=== PATIENT | male | born 1965 | race Caucasian/White ===

== ENCOUNTER 2018-03-29 13:17 | Observation (INO) | payer MEDICAID, SELFPAY ==
[2018-03-29] VITALS (11 sets, daily range): BP systolic 141–164; BP diastolic 88–119; PULSE 70–92; RESP 16–19; TEMP 36.7–37.3; O2SAT 94–97; BMI 35.1; BMI 34.2
--- NOTE | 2018-03-29 13:26 | NURSING ---
NO OLD EKGS
--- NOTE | 2018-03-29 13:39 | CT_ITS ---
STUDY: CTA NECK WITH CONTRAST REASON FOR EXAM: Male, 52 years old. Right arm weakness. RADIATION DOSAGE (If Supplied By Facility): CTDIvol = ( 28.73 ) mGy, DLP = ( 1536.42 ) mGycm TECHNIQUE: CT angiography with multi-detector data acquisition was performed from the aortic arch to the skull base following intravenous administration of 100 ml of Isovue 370 contrast. MIP images were reconstructed from the axial data set. Post-processing of the angiographic images was performed, with multiplanar reformation and 3D reconstruction. Individualized dose optimization techniques were used for this CT. COMPARISON: None. FINDINGS: AORTIC ARCH: There is a bovine origin of the great vessels arising from the aortic arch with a common origin of the brachiocephalic and left common carotid artery. Normal origin of the left subclavian artery. RIGHT CAROTID ARTERIES: Normal right common carotid artery (CCA). Normal right common carotid bulb. Normal origin of the right internal carotid (ICA) artery without a hemodynamically significant stenosis. Normal visualized cervical portion of the right internal carotid artery. Normal origin of the right external carotid artery (ECA). LEFT CAROTID ARTERIES: Normal left common carotid artery (CCA). Normal left common carotid bulb. There is moderate atherosclerotic plaque formation of the origin of the left internal carotid artery with an estimated stenosis of 50-69% stenosis. Normal visualized cervical portion of the left internal carotid artery. Normal origin of the left external carotid artery (ECA). VERTEBRAL ARTERIES: Normal bilateral vertebral arteries. IMPRESSION: 50-69% narrowing at the origin of the left internal carotid artery due to an atherosclerotic calcific plaque. Electronically Signed: Hernandez Small MD at 14:41 EDT Tel [phone], Service support , STUDY: CTA OF THE BRAIN REASON FOR EXAM: Male, 52 years old. Right arm weakness. RADIATION DOSAGE (If Supplied By Facility): CTDIvol = ( 28 ) mGy, DLP = ( 1536.42 ) mGycm TECHNIQUE: CT angiography was performed with a multi-detector CT scanner. Data acquisition was obtained from the skull base through the vertex following intravenous administration of 100 ml of Isovue-370. MIP images were reconstructed from the axial data set. Post-processing of the angiographic images was performed, with multiplanar reformation and 3D reconstruction. Individualized dose optimization techniques were used for this CT. COMPARISON: None. FINDINGS: Normal bilateral petrous carotid arteries. Normal right cavernous carotid artery with a normal supraclinoid bifurcation. Normal left cavernous carotid artery with a normal supraclinoid bifurcation. Normal right A1 segments of the anterior cerebral artery. Normal left A1 segments of the anterior cerebral artery. Normal intact anterior communicating artery (ACOM). Normal bilateral A2 segments of the anterior cerebral arteries. Normal right M1 and M2 segments of the middle cerebral arteries, with a normal M1 bifurcation. Normal left M1 and M2 segments of the middle cerebral arteries, with a normal M1 bifurcation. Normal right posterior communicating artery (PCOM). Normal left posterior communicating artery (PCOM). Normal bilateral vertebral arteries. Normal basilar artery with a normal basilar bifurcation. The visualized bilateral superior cerebellar (SCA) arteries are normal. Normal bilateral P1, P2 and visualized P3 segments of the posterior cerebral arteries. There is no demonstrated aneurysm of the [place] of [place]. There is no demonstrated abnormality of the visualized brain. CT/CTA Head W/WO Contrast IMPRESSION: Normal [place] of [place] without a demonstrated aneurysm or hemodynamically significant stenosis. Electronically Signed: Hernandez Small MD at 14:42 EDT Tel [phone], Service support ,
--- NOTE | 2018-03-29 13:39 | CT_ITS ---
STUDY: CTA NECK WITH CONTRAST REASON FOR EXAM: Male, 52 years old. Right arm weakness. RADIATION DOSAGE (If Supplied By Facility): CTDIvol = ( 28.73 ) mGy, DLP = ( 1536.42 ) mGycm TECHNIQUE: CT angiography with multi-detector data acquisition was performed from the aortic arch to the skull base following intravenous administration of 100 ml of Isovue 370 contrast. MIP images were reconstructed from the axial data set. Post-processing of the angiographic images was performed, with multiplanar reformation and 3D reconstruction. Individualized dose optimization techniques were used for this CT. COMPARISON: None. FINDINGS: AORTIC ARCH: There is a bovine origin of the great vessels arising from the aortic arch with a common origin of the brachiocephalic and left common carotid artery. Normal origin of the left subclavian artery. RIGHT CAROTID ARTERIES: Normal right common carotid artery (CCA). Normal right common carotid bulb. Normal origin of the right internal carotid (ICA) artery without a hemodynamically significant stenosis. Normal visualized cervical portion of the right internal carotid artery. Normal origin of the right external carotid artery (ECA). LEFT CAROTID ARTERIES: Normal left common carotid artery (CCA). Normal left common carotid bulb. There is moderate atherosclerotic plaque formation of the origin of the left internal carotid artery with an estimated stenosis of 50-69% stenosis. Normal visualized cervical portion of the left internal carotid artery. Normal origin of the left external carotid artery (ECA). VERTEBRAL ARTERIES: Normal bilateral vertebral arteries. IMPRESSION: 50-69% narrowing at the origin of the left internal carotid artery due to an atherosclerotic calcific plaque. Electronically Signed: Hernandez Small MD at 14:41 EDT Tel [phone], Service support , STUDY: CTA OF THE BRAIN REASON FOR EXAM: Male, 52 years old. Right arm weakness. RADIATION DOSAGE (If Supplied By Facility): CTDIvol = ( 28 ) mGy, DLP = ( 1536.42 ) mGycm TECHNIQUE: CT angiography was performed with a multi-detector CT scanner. Data acquisition was obtained from the skull base through the vertex following intravenous administration of 100 ml of Isovue-370. MIP images were reconstructed from the axial data set. Post-processing of the angiographic images was performed, with multiplanar reformation and 3D reconstruction. Individualized dose optimization techniques were used for this CT. COMPARISON: None. FINDINGS: Normal bilateral petrous carotid arteries. Normal right cavernous carotid artery with a normal supraclinoid bifurcation. Normal left cavernous carotid artery with a normal supraclinoid bifurcation. Normal right A1 segments of the anterior cerebral artery. Normal left A1 segments of the anterior cerebral artery. Normal intact anterior communicating artery (ACOM). Normal bilateral A2 segments of the anterior cerebral arteries. Normal right M1 and M2 segments of the middle cerebral arteries, with a normal M1 bifurcation. Normal left M1 and M2 segments of the middle cerebral arteries, with a normal M1 bifurcation. Normal right posterior communicating artery (PCOM). Normal left posterior communicating artery (PCOM). Normal bilateral vertebral arteries. Normal basilar artery with a normal basilar bifurcation. The visualized bilateral superior cerebellar (SCA) arteries are normal. Normal bilateral P1, P2 and visualized P3 segments of the posterior cerebral arteries. There is no demonstrated aneurysm of the [place] of [place]. There is no demonstrated abnormality of the visualized brain. CT/CTA Neck W/WO Contrast IMPRESSION: Normal [place] of [place] without a demonstrated aneurysm or hemodynamically significant stenosis. Electronically Signed: Hernandez Small MD at 14:42 EDT Tel [phone], Service support ,
--- NOTE | 2018-03-29 13:40 | EKG12_ITS ---
Test Reason : NUMBNESS Blood Pressure : / mmHG Vent. Rate : 091 BPM Atrial Rate : 091 BPM P-R Int : 148 ms QRS Dur : 088 ms QT Int : 364 ms P-R-T Axes : 061 059 046 degrees QTc Int : 447 ms Normal sinus rhythm Nonspecific ST and T wave abnormality Abnormal ECG Confirmed by CHELLE MENA, LETICIA ([id number]), brands editor AGUSTÍN MANCIA ([id number]) on 03/31/2018 1:40:22 PM Referred By: GUILLERMO/JAX Confirmed By:LETICIA CORBETT MD
--- NOTE | 2018-03-29 13:42 | ED.VISSUMM ---
- ER Visit Summary Date of Service: 03/29/18 Chief Complaint: Right arm numbness and weakness History of Present Illness: The patient is a [address] Brian. Reports that approximately 1 hour ago he had the onset of right arm numbness and weakness. This was most pronounced in his hand. It lasted approximately 10 minutes. He reports the weakness is resolved. However, he still is experiencing numbness. He denies any facial droop. No slurred speech or aphasia. No vertigo. No symptoms on the left. He has never had anything like this before. He is right-hand dominant. He denies any change in activity or recent trauma. Physical Examination: Vitals: Stable. Afebrile. General: Well-nourished and well-developed. Head: Normocephalic atraumatic. Neck: Supple, no lymphadenopathy. No JVD. Nontender. Cardiovascular: Regular rate and rhythm. No murmurs. Respiratory: No respiratory distress. Clear to auscultation bilaterally. Abdominal: Soft, nontender, nondistended, normal bowel sounds. No guarding, rebound, or peritoneal signs. Back: Nontender. Extremities: Nontender, no edema. Skin: Normal color, no rash. Neurologic: Alert and oriented ?3. Cranial nerves II through XII are intact. Normal strength. Decreased sensation to light touch in the right arm. NIH scale is 1. Psych: Normal affect. Test Results: CBC is marked for a hemoglobin of 16.7, segmented neutrophils of 46, monocytes of 11. Coags are normal. EKG is sinus at [address] head is normal. CTA head is normal. CTA of the neck shows 50-69% narrowing at the origin of the left internal carotid artery secondary to atherosclerotic plaque. Emergency Department Course and Treatment: Patient's NIH scale is 1. He is not a TPA candidate. He is resting comfortably. Treatment Plan: Patient was discussed with Dr. Fernandez. He will be discussed with the hospitalist and admitted for further evaluation and treatment. Disposition: Admitted in improved condition. Impression: 1. Right-sided upper extremity weakness/numbness. This note was generated with [employer] software. It may contain incorrect words, spelling, and punctuation that were not noted in review of the chart prior to signing ED Disposition - Plan for ED Patient: Chief Complaint: Numb/Ting Referrals: Blu Gill MD [Primary Care Provider] -
[2018-03-29] MEDS: 0.9% Normal Saline 1,000 ML 100 ML IV (14:00)
--- NOTE | 2018-03-29 14:03 | NURSING ---
GENET HILARIO, CALLED. GREEN TOP HEMOLIZED
[2018-03-29 14:04] LABS: Hematocrit 46.3 % (40-54); Hemoglobin 16.7 g/dl (13.0-16.5); Mean Corp Hgb Conc 36.1 g/gl (32-36); Mean Corpuscular Hgb 30.9 pg (27.0-32.0); Mean Corpuscular Volume 85.6 fL (80-94); Platelet Count 287 K/mm3 (150-450); RBC Distribution Width CV 12.7 % (11.6-14.6); RBC Distribution Width SD 39.4 fl (35.1-43.9); Red Blood Count 5.41 M/mm3 (4.6-6.2); White Blood Count 6.3 K/mm3 (4.4-11.0)
[2018-03-29 14:05] LABS: Bedside Glucose 163 mg/dL (70-110)
[2018-03-29 14:05] LABS: Absolute Lymphocyte Count 2.52 X10^3/ul (0.83-4.51); Absolute Neutrophil Count 2.9 X10^3/uL (2.0-7.7); Basophil# 0.03 X10^3/uL; Basophil% 0.5 % (0-1); Eosinophil# 0.17 X10^3/uL; Eosinophils% 2.7 % (0-5); Lymphocyte # 2.52 X10^3/ul (4.0); Lymphocyte % 39.7 % (19-41); Monocyte# 0.67 X10^3/uL; Monocyte% 10.6 % (0-10); Neutrophil # 2.92 X10^3/uL (2.7-7.7); POSITIVE COUNT NO; POSITIVE DIFFERENTIAL NO; POSITIVE MORPHOLOGY NO
[2018-03-29 14:19] LABS: International Normalized Ratio 0.9
[2018-03-29 14:20] LABS: Partial Thromboplast Time 26.4 Seconds (24.1-36.2)
--- NOTE | 2018-03-29 15:43 | CON.PCM_ITS ---
Problem List (1) TIA (transient ischemic attack) Status: Acute Reason for Consult Date of Consultation: 03/29/18 Reason for Consultation: TIA History of Present Illness: The patient is a 52 year old CM with no significant PMH admitted with acute onset right arm weakness and numbness. 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 CT head reported nothing acute, CTA head/neck reported to show Left ICA 50-69% stenosis. [] Past Medical History Allergies No Known Allergies Allergy (Verified 03/29/18 13:21) Home Medications: Ambulatory Orders Medication Instructions Recorded NK [NK] 03/29/18 Lives: Spouse/ Significant Other Smoking Status: Never smoker Alcohol: None Drugs: None Review of Systems Constitutional: Reports: - - complete ROS negative except as documented in HPI Patient Problems: Active and Suspected Problems TIA (transient ischemic attack) (Acute) - Physical Exam General: Alert HEENT: Atraumatic Neck: Supple Lungs: Clear to auscultation Cardiovascular: Normal S1, Normal S2 Abdomen: Bowel Sounds Present Extremities: No cyanosis Skin: No rashes Musculoskeletal: No Tenderness to Palpation of Joints or Extremities Neurological: - - consious, alert, AoA x3, CN 2-12 grossly intact, power 5/5 all 4 extremities, no sensory loss, no cerebellar signs, Reflexes + B/L B/S/T/K/ A, gait deferred, NIHSS 0 at present. Psych/Mental Status: Normal Affect Vital Signs Temp Pulse Resp BP Pulse Ox 99.1 F 89 16 143/88 H 96 03/29/18 13:21 03/29/18 14:34 03/29/18 14:34 03/29/18 14:34 03/29/18 14:34 Oxygen Delivery Method Room Air Weight: 95.7 kg Body Mass Index (BMI) 35.1 Finger Stick Blood Glucose 163 Laboratory Tests Past 24 Hrs 03/29/18 03/29/18 03/29/18 13:30 13:30 13:30 WBC 6.3 RBC 5.41 Hgb 16.7 H Hct 46.3 MCV 85.6 MCH 30.9 MCHC 36.1 H RDW 12.7 RDW Differential 39.4 Plt Count 287 MPV 9.0 Immature Gran % (Auto) 0.500 Neut % (Auto) 46.0 L Lymph % (Auto) 39.7 [place] % (Auto) 10.6 H Eos % (Auto) 2.7 Baso % (Auto) 0.5 Absolute Neuts (auto) 2.9 Absolute Lymphs (auto) 2.52 Total Counted Not Reportable PT 12.0 INR 0.9 APTT 26.4 Sodium Cancelled Potassium Cancelled Chloride Cancelled Carbon Dioxide Cancelled Anion Gap Cancelled BUN Cancelled Creatinine Cancelled Estim Creat Clear Calc Cancelled Est GFR (MDRD) Af Amer Cancelled Est GFR (MDRD) Non-Af Cancelled BUN/Creatinine Ratio Cancelled Glucose Cancelled Calcium Cancelled 03/29/18 14:30 WBC RBC Hgb Hct MCV MCH MCHC RDW RDW Differential Plt Count MPV Immature Gran % (Auto) Neut % (Auto) Lymph % (Auto) [place] % (Auto) Eos % (Auto) Baso % (Auto) Absolute Neuts (auto) Absolute Lymphs (auto) Total Counted PT INR APTT Sodium Pending Potassium Pending Chloride Pending Carbon Dioxide Pending Anion Gap Pending BUN Pending Creatinine Pending Estim Creat Clear Calc Est GFR (MDRD) Af Amer Pending Est GFR (MDRD) Non-Af Pending BUN/Creatinine Ratio Pending Glucose Pending Calcium Pending POC Glucose 03/29/18 13:59 POC Glucose 163 H Assessment/Plan All Active Problems TIA (transient ischemic attack) (Acute) The patient is a 52 year old CM with no significant PMH admitted with acute onset right arm weakness and numbness. 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 CT head reported nothing acute, CTA head/neck reported to show Left ICA 50-69% stenosis. Impression Probable TIA Plan -ASA 81 mg PO once daily, Plavix 75 mg PO once daily. Dual AP for 3 weeks, then switch to single AP -Lipitor 80 mg PO q hs -MRI brain w/o contrast and MRI C spine w/o contrast -CTA head/neck reviewed -Recommend TTE, LDL and Hba1c -Stroke risk factors discussed in detail and stroke education provided -PT/OT -GI/DVT prophylaxis -Follow up with Neurology as outpatient in 2-3 weeks -Please call with questions if any -Thank you for allowing us to participate in patient's care and management I spent 60 minutest taking history, doing physical examination, reviewing medical records, coordinating care and counseling patient and his family
--- NOTE | 2018-03-29 15:43 | MRI_ITS ---
STUDY: MRI BRAIN WITHOUT CONTRAST REASON FOR EXAM: Male, 52 years old. Right arm weakness and numbness. TECHNIQUE: Standardized multiplanar fat and water weighted pulse sequences were obtained. COMPARISON: None. FINDINGS: Normal size of the ventricles and extra-axial spaces for the patient's age. Normal white matter tracts of the supratentorial brain. There is no evidence for recent intracranial ischemia or other cause of cytotoxic edema on diffusion weighted imaging (DWI). Normal T2* images of the brain without demonstrated susceptibility artifact. There is no demonstrated hemosiderin stain. Normal bilateral basal ganglia. Normal thalami. There is no extra-axial fluid accumulation. Normal flow voids within the major intracranial circulation suggesting patency by spin echo criteria. Normal sella turcica, pituitary gland, infundibular stalk, optic chiasm and hypothalamus. Normal tectal plate and pineal gland. Normal midbrain, natty and medulla. Normal cerebellum. Normal basal cisterns. Normal bilateral temporal bones. Normal bilateral internal auditory canals. No demonstrated orbital abnormality, within the constraints of a routine brain study. Normal visualized paranasal sinuses. Normal calvarium and skull base. Normal visualized soft tissue structures. Normal visualized upper cervical spine. MRI/Brain without Contrast IMPRESSION: No evidence of acute intracranial bleed, mass or ischemia. Electronically Signed: Chandan Qureshi DO at 20:51 EDT , Service support ,
--- NOTE | 2018-03-29 15:43 | MRI_ITS ---
STUDY: MRI CERVICAL SPINE WITHOUT CONTRAST REASON FOR EXAM: Male, 52 years old. Right arm weakness and numbness. TECHNIQUE: Standardized fat and water weighted pulse sequences were obtained in the sagittal and axial planes. COMPARISON: None FINDINGS: Normal foramen magnum and brainstem-cervical cord junction. Normal craniovertebral junction. Normal anterior atlantoaxial articulation. Normal odontoid process. Normal cervical lordosis. Normal vertebral bodies and posterior osseous elements. C2-3: Normal endplates. Normal disc height, signal and morphology. Normal central canal and intervertebral neural foramina. C3-4: Normal endplates. Normal disc height, signal and morphology. Normal central canal and intervertebral neural foramina. C4-5: Normal endplates. Normal disc height, signal and morphology. Normal central canal and intervertebral neural foramina. C5-6: Normal endplates. Normal disc height, signal and morphology. Normal central canal and intervertebral neural foramina. C6-7: Normal endplates. Normal disc height, signal and morphology. Normal central canal and intervertebral neural foramina. C7-T1: Normal endplates. Normal disc height, signal and morphology. Normal central canal and intervertebral neural foramina. Normal cervical cord. Normal visualized soft tissue structures. MRI/Spine Cervical (Routine) IMPRESSION: No evidence of significant disc degenerative change, disc bulge or foraminal narrowing. Electronically Signed: Chandan Qureshi DO at 20:56 EDT , Service support ,
[2018-03-29 15:44] LABS: Anion Gap 9 (5-15); BUN 20 mg/dL (7-18); BUN/Creat Ratio 20.9 RATIO (10-20); Calcium,Total 7.9 mg/dL (8.5-10.1); Chloride 102 mmol/L (98-107); Creatinine, Serum 0.96 mg/dL (0.70-1.30); EST Glomerular Filtration Rate 88 mL/min (>60); Est Glom Filt Rate - Afr Amer 107 mL/min (>60); Estimated Creatinine Clearance 80.08 ml/min; Glucose 166 mg/dL (74-106); Potassium 3.7 mmol/L (3.5-5.1); Sodium Level 135 mmol/L (136-145)
--- NOTE | 2018-03-29 15:59 | NURSING ---
DR REILLY IN WITH PATIENT
--- NOTE | 2018-03-29 17:04 | NURSING ---
Eric notified patient may transfer to PCU.
--- NOTE | 2018-03-29 17:06 | NURSING ---
101 RT ARM WEAKNESS LYLY
--- NOTE | 2018-03-29 17:33 | ECHOCS_ITS ---
Reason For Study: TIA/CVA Procedure This was a 2D Doppler, Color Flow transthoracic echocardiogram. Exam performed portable in patient room. Left Ventricle Normal size and thickness. The estimated ejection fraction is 65 %. Normal diastology for age. No regional wall motion abnormalities noted. Right Ventricle Normal size and thickness. Normal systolic function. Atria Normal left atrium. Normal right atrium. Normal atrial septum. Bubble contrast study negative for right to left interatrial shunt. Mitral Valve The mitral valve is structurally normal. No prolapse or stenosis seen. Tricuspid Valve Normal tricuspid valve. Trivial tricuspid valve insufficiency. Aortic Valve Trisinus/trileaflet aortic valve. Normal aortic valve. Pulmonic Valve Normal pulmonic valve. Great Vessels Normal aortic root. Normal arch. Normal inferior vena cava. Inferior vena cava collapse with sniff. Pericardium/Pleural No pericardial effusion. Medication Diluted definity 4ml given slow IV push to enhance endocardial definition. Performed a rapid injection of agitated mix of 9 cc saline and 1cc air to assess for atrial septal defect. MMode/2D Measurements & Calculations LVIDd: 4.8 cm IVSd: 1.0 cm Ao root diam: 3.5 cm LVIDs: 2.8 cm LVPWd: 1.0 cm LA dimension: 3.5 cm RVDd: 3.0 cm FS: 40.7 % LAV(MOD-bp): 37.8 ml LA A4 area: 14.8 cm2 RA A4 area: 12.9 cm2 LAV(MOD-bp) Indexed: 19.1 ml/m2 LAV(MOD-sp2): 37.8 ml LAV(MOD-sp4): 34.1 ml Time Measurements MV dec time: 0.25 sec Doppler Measurements & Calculations MV E max nhan: 79.5 cm/sec Lat Peak E' Nhan: 11.2 cm/sec Med Peak E' Nhan: 9.1 cm/sec MV A max nhan: 71.8 cm/sec E/E' lat: 7.1 E/E' med: 8.8 MV E/A: 1.1 Ao V2 max: 139.8 cm/sec LV V1 max: 110.5 cm/sec PA V2 max: 114.6 cm/sec Ao max P.8 mmHg LV V1 max P.9 mmHg Interpretation Summary The estimated ejection fraction is 65 %. Trivial tricuspid valve insufficiency. Bubble contrast study negative for right to left interatrial shunt. Normal diastology for age. The study was technically difficult. Contrast injection was performed. Ordering Physician: Sourav Albright Referring Physician: KIMBERLY MIRANDA Performed By: Mary Rahman RDCS
--- NOTE | 2018-03-29 17:49 | HP.PCM_ITS ---
Problem List (1) Right arm and hand weakness Status: Acute History of Present Illness Date of Admission: 03/29/18 Chief Complaint: Right arm and hand weakness The patient is a 52 year old M at [facility] with chief complaint of right arm and hand weakness that lasted for about 10 minutes with an onset at about 12:30 PM today. Patient states that he was not able to pick objects up with his right hand. Patient denied any visual disturbances, speech disturbances, or any other focal motor weakness. Evaluation in the emergency room revealed the patient's NIH stroke score to be 1, CTA of the head and neck were performed and showed a 50-69% narrowing of the left internal carotid artery on the neck CTA, otherwise these tests were unremarkable. Patient's labs were remarkable for BUN of 20, glucose of 166, and hemoglobin of 16.7. Patient takes no medications at home. On my examination, patient's motor functioning was 5/5 bilaterally. He was seen in consultation by neurology in the emergency room, patient will be placed in observation status on PCU for right arm and hand weakness felt to possibly be secondary to a TIA or CVA. Past Medical History Allergies No Known Allergies Allergy (Verified 03/29/18 13:21) Home Medications: Ambulatory Orders Medication Instructions Recorded NK [NK] 03/29/18 Surgical History: no surgical history Psychiatric History: No pertinent psych hx Lives: Spouse/ Significant Other Smoking Status: Never smoker Tobacco Use: Non-smoker Alcohol: None Drugs: None - *Family History Maternal History Items: No pertinent history Paternal History Items: Heart Disease Review of Systems Constitutional: Reports: Weakness - Right arm and hand weakness as described in chief complaint. Denies: Anorexia, Chills, Fever, Night Sweats, Malaise, Weight Change, Fatigue Eyes: Denies: Blurred vision, Cataracts, Conjunctivae Inflammation, Double vision, Drainage, Pain, Redness HEENT: Denies: Difficulty Hearing, Difficulty Swallowing, Dysphasia, Ear Pain, Eye Pain, Hard of Hearing, Head Aches, Hearing Changes, Nasal bleeding, Nasal Congestion, Post Nasal Drip Cardiovascular: Denies: Chest Pain, Claudication, Chest Pressure, Chest Tightness, Edema, Heaviness, Orthopnea, Palpitations, Paroxysmal Noc. Dyspnea, Syncope Respiratory: Denies: Cough, Hemoptysis, Pleuritic Pain, Shortness of Breath, Shortness of breath at rest, Shortness of breath upon exertion, Sputum production, Wheezing Gastrointestinal: Denies: Abdominal Pain, Constipation, Diarrhea, Hematemesis, Hematochezia, Nausea, Melena, Vomiting Genitourinary: Denies: Dysuria, Frequency, Hematuria, Hesitancy, Urgency Musculoskeletal: Denies: Back Pain, Foot Pain, Hand Pain, Joint Pain, Joint stiffness, Joint swelling, Joint Tenderness, Leg Pain Skin: Denies: Dryness, Pruritis, Rash Neurological: Reports: Focal weakness - Right arm and hand weakness as described in chief complaint. Denies: Balance problems, Blurred vision, Double vision, Slurred speech, Difficulty swallowing, Headaches, Incoordination, Numbness, Tingling Psychiatric: Denies: Anxiety, Depression, Homicidal Ideations, Suicidal Ideations Endocrine: Denies: Change in Body Habitus, Heat/ Cold Intolerance, Polydipsia, Polyuria Hematologic/ Lymphatic: Denies: Adenopathy, Anemia, Easy Bruising, Easy Bleeding , Petechiae, Purpura VTE Information - Inpt Only VTE Present on Admission: No VTE Mechan Device Prophylaxis: None VTE Pharm Prophylaxis ordered?: Yes Patient Problems: Active and Suspected Problems TIA (transient ischemic attack) (Acute) Right arm and hand weakness (Acute) - Physical Exam General: Alert, Oriented x3, Cooperative, No apparent distress, Well developed, Well nourished HEENT: Atraumatic, PERRLA, EOMI, Normocephalic Oral: Moist Mucosa Neck: Supple, No JVD, Negative Carotid Bruits, No Nuchal Rigidity, Trachea Midline, Thyroid Normal Size and Texture Lungs: Clear to auscultation, Normal air movement, No rhonchi, No wheeze, No rales Cardiovascular: Regular rate, Regular Rhythm, Normal S1, Normal S2, No murmurs, No Ectopic Activity, PMI Normal, No rub noted, No Gallop Abdomen: Bowel Sounds Present, Soft, Non Tender, Non-Distended, No hernias noted Extremities: No clubbing, No cyanosis, No edema, Capillary Refill Less than 3 Seconds Skin: No rashes, No breakdown Musculoskeletal: No Tenderness to Palpation of Joints or Extremities Neurological: Cranial nerves II-XII grossly intact, Neuro grossly intact, Muscle tone normal, Sensory exam intact to light touch and pain, Coordination normal Psych/Mental Status: Normal Affect, Appropriate, Alert and oriented to time, place, person, mood and affect Vital Signs Temp Pulse Resp BP Pulse Ox 98.4 F 89 19 H 141/119 H 97 03/29/18 17:31 03/29/18 17:31 03/29/18 17:31 03/29/18 17:31 03/29/18 17:31 Oxygen Delivery Method Room Air Weight: 93.2 kg Body Mass Index (BMI) 34.2 Assessment/Plan All Active Problems TIA (transient ischemic attack) (Acute) Right arm and hand weakness (Acute) #1 right arm and hand weakness-transient in nature, etiology unclear at this point, patient will be placed in observation status on PCU, he will be monitored on telemetry, PT and OT will see the patient, patient will have an MRI of the brain tomorrow, patient will be seen again tomorrow by neurology, he will be placed on a statin and aspirin. #2 slight elevation of patient's blood sugar-patient will have a hemoglobin A1c performed Code Visit OBSV E&M: 12116 Initial observation care L3
[2018-03-29 19:56] LABS: Hemoglobin A1c 6.1 % (4.2-6.3)
[2018-03-29] MEDS: Atorvastatin Calcium 80 MG Tablet PO (21:44)
[2018-03-29] MEDS: Aspirin 81 MG TAB.CHEW PO (21:44)
[2018-03-30] VITALS (7 sets, daily range): BP systolic 118–140; BP diastolic 66–89; PULSE 67–85; RESP 16–18; TEMP 36.2–36.8; O2SAT 96–99; BMI 34.2
[2018-03-30 05:56] LABS: Cholesterol 229 mg/dL (200); High Density Lipoprotein 30 mg/dL; Triglycerides 497 mg/dL
[2018-03-30] MEDS: Aspirin 81 MG TAB.CHEW PO (09:55)
--- NOTE | 2018-03-30 10:15 | DCINST_ITS ---
- Discharge Diagnoses Current Active Problems: Current Active and Chronic Problems TIA (transient ischemic attack) (Acute) Right arm and hand weakness (Acute) You will use the following diet at home:: Cardiac - Low cholesterol Discharge Activity: Return to Normal Activity Call your doctor if you observe: Numbness or Tingling, Shortness of breath, Dizziness, Fainting spells, Chest pain Allergies/Adverse Reactions: Allergies No Known Allergies Allergy (Verified 03/29/18 13:21) Medications to take at Discharge Aspirin [Aspirin, Baby] 81 mg PO DAILY@0800 #30 tab.chew 03/30/18 Atorvastatin Calcium [Lipitor] 80 mg PO QHS #30 tab 03/30/18 Clopidogrel Bisulfate [Plavix] 75 mg PO DAILY #21 tab 03/30/18 The following prescriptions were given: Aspirin [Aspirin, Baby] 81 mg PO DAILY@0800 #30 tab.chew Atorvastatin Calcium [Lipitor] 80 mg PO QHS #30 tab Clopidogrel Bisulfate [Plavix] 75 mg PO DAILY #21 tab Primary Care Physician: Blu Gill MD [Primary Care Provider] - Please follow up with your Primary Care Physician in: 1 Week Test Results: Test results from this visit will be discussed in further detail at your follow- up appointment, if applicable. Please Follow Up With: Lazara Fernandez MD When: 2-3 Weeks Please Follow Up With: Curt Guillaume MD - Vascular Surgery When: 1-2 Weeks for follow regarding left carotid artery stenosis Proposed Discharge Date: 03/30/18
--- NOTE | 2018-03-30 10:16 | PCM.DC.SUM ---
Discharge Date and Diagnosis Date of Admission: 03/29/18 Date of Discharge: 03/30/18 - Primary Discharge Diagnosis Active and Suspected Problems 1. Probable TIA 2. Hyperlipidemia 3. Left ICA stenosis 50-69% Hospital Course and Treatment Imaging Results: Diagnostic Data Head CTA 03/29/18 13:39 IMPRESSION: Normal [place] without a demonstrated aneurysm or hemodynamically significant stenosis. Electronically Signed: Hernandez Small MD at 14:42 EDT Tel [phone], Service support , Neck CTA 03/29/18 13:39 IMPRESSION: Normal [place] without a demonstrated aneurysm or hemodynamically significant stenosis. Electronically Signed: Hernandez Small MD at 14:42 EDT Tel [phone], Service support , Brain MRI 03/29/18 15:43 IMPRESSION: No evidence of acute intracranial bleed, mass or ischemia. Electronically Signed: Chandan Qureshi DO at 20:51 EDT , Service support , Cervical Spine MRI 03/29/18 15:43 IMPRESSION: No evidence of significant disc degenerative change, disc bulge or foraminal narrowing. Electronically Signed: Chandan Qureshi DO at 20:56 EDT , Service support , Dr. Fernandez- Neurology Operations: None Procedures: 2-D Echocardiogram Summary of Care Provided: The patient is a 52 year old M admitted 03/29/18 due to right arm and hand weakness. Patient states this resolved after approximately 20 minutes. Neurology consulted. Probable TIA. He denies any focal deficits, visual or speech changes. NIH 0. Brain MRI negative for acute stroke. Cervical spine MRI showed no evidence of significant disc degenerative change, disc bulge or foraminal narrowing. CTA of neck demonstrated a left internal carotid artery with estimated 50-69% stenosis. Patient will be discharged on dual antiplatelet therapy for 3 weeks with aspirin and Plavix followed by a single antiplatelet therapy. Lipitor 80 mg p.o. nightly. Echocardiogram pending and will be reviewed prior to discharge. Follow-up with neurology as outpatient in 2-3 weeks. Follow-up with Dr. Guillaume in 1-2 weeks for outpatient follow-up regarding left carotid artery stenosis. Hemoglobin A1c 6.1%. Follow-up with primary care physician in 1 week. General: Alert, Oriented x3, Cooperative HEENT: Atraumatic, PERRLA, EOMI, Normocephalic Oral: Moist Mucosa Neck: Supple, No JVD, Negative Carotid Bruits Lungs: Clear to auscultation, Normal air movement Cardiovascular: Regular rate, Regular Rhythm, Normal S1, Normal S2, No murmurs Abdomen: Bowel Sounds Present, Soft, Non Tender, Non-Distended Extremities: No clubbing, No cyanosis, No edema, Capillary Refill Less than 3 Seconds Skin: No rashes, No breakdown Musculoskeletal: No Tenderness to Palpation of Joints or Extremities Neurological: Cranial nerves II-XII grossly intact, Neuro grossly intact Psych/Mental Status: Normal Affect, Appropriate Patient seen exam prior to discharge. Physical assessment as noted above. Patient is stable for discharge home with the follow-up recommendations as noted above. This patient was seen by EVITA Pederson under the supervision of Dr. Clarke. Discharge Diet: Low fat/ Low Cholesterol Discharge Activity: Return to Normal Activity Call your doctor if you observe: Numbness or Tingling, Shortness of breath, Dizziness, Fainting spells, Chest pain Home Medications: Medications to take at Discharge Aspirin [Aspirin, Baby] 81 mg PO DAILY@0800 #30 tab.chew 03/30/18 Atorvastatin Calcium [Lipitor] 80 mg PO QHS #30 tab 03/30/18 Clopidogrel Bisulfate [Plavix] 75 mg PO DAILY #21 tab 03/30/18 Following Prescrptions Were Given to Patient: Aspirin [Aspirin, Baby] 81 mg PO DAILY@0800 #30 tab.chew Atorvastatin Calcium [Lipitor] 80 mg PO QHS #30 tab Clopidogrel Bisulfate [Plavix] 75 mg PO DAILY #21 tab Primary Care Physician: Blu Gill MD [Primary Care Provider] - Please follow up with your Primary Care Physician in: 1 Week Please Follow Up With: Lazara Fernandez MD When: 2-3 Weeks Please Follow Up With: Curt Guillaume MD - Vascular Surgery When: 1-2 Weeks for follow regarding left carotid artery stenosis Disposition: Home Minutes spent on discharge:: 35 Patient Condition:: Stable Medical Necessity - Tobacco Use Smoking Status: Never smoker Tobacco Use: Non-smoker Meaningful Use Info Meaningful Use Diagnoses (Choose all that apply): None applicable
--- NOTE | 2018-03-30 10:30 | DS.PCM_ITS ---
Discharge Date and Diagnosis Date of Admission: 03/29/18 Date of Discharge: 03/30/18 - Primary Discharge Diagnosis Active and Suspected Problems 1. Probable TIA 2. Hyperlipidemia 3. Left ICA stenosis 50-69% Hospital Course and Treatment Imaging Results: Diagnostic Data Head CTA 03/29/18 13:39 IMPRESSION: Normal [place] without a demonstrated aneurysm or hemodynamically significant stenosis. Electronically Signed: Hernandez Small MD at 14:42 EDT Tel [phone], Service support , Neck CTA 03/29/18 13:39 IMPRESSION: Normal [place] without a demonstrated aneurysm or hemodynamically significant stenosis. Electronically Signed: Hernandez Small MD at 14:42 EDT Tel [phone], Service support , Brain MRI 03/29/18 15:43 IMPRESSION: No evidence of acute intracranial bleed, mass or ischemia. Electronically Signed: Chandan Qureshi DO at 20:51 EDT , Service support , Cervical Spine MRI 03/29/18 15:43 IMPRESSION: No evidence of significant disc degenerative change, disc bulge or foraminal narrowing. Electronically Signed: Chandan Qureshi DO at 20:56 EDT , Service support , Dr. Fernandez- Neurology Operations: None Procedures: 2-D Echocardiogram Summary of Care Provided: The patient is a 52 year old M admitted 03/29/18 due to right arm and hand weakness. Patient states this resolved after approximately 20 minutes. Neurology consulted. Probable TIA. He denies any focal deficits, visual or speech changes. NIH 0. Brain MRI negative for acute stroke. Cervical spine MRI showed no evidence of significant disc degenerative change, disc bulge or foraminal narrowing. CTA of neck demonstrated a left internal carotid artery with estimated 50-69% stenosis. Patient will be discharged on dual antiplatelet therapy for 3 weeks with aspirin and Plavix followed by a single antiplatelet therapy. Lipitor 80 mg p.o. nightly. Echocardiogram pending and will be reviewed prior to discharge. Follow-up with neurology as outpatient in 2-3 weeks. Follow-up with Dr. Guillaume in 1-2 weeks for outpatient follow-up regarding left carotid artery stenosis. Hemoglobin A1c 6.1%. Follow-up with primary care physician in 1 week. General: Alert, Oriented x3, Cooperative HEENT: Atraumatic, PERRLA, EOMI, Normocephalic Oral: Moist Mucosa Neck: Supple, No JVD, Negative Carotid Bruits Lungs: Clear to auscultation, Normal air movement Cardiovascular: Regular rate, Regular Rhythm, Normal S1, Normal S2, No murmurs Abdomen: Bowel Sounds Present, Soft, Non Tender, Non-Distended Extremities: No clubbing, No cyanosis, No edema, Capillary Refill Less than 3 Seconds Skin: No rashes, No breakdown Musculoskeletal: No Tenderness to Palpation of Joints or Extremities Neurological: Cranial nerves II-XII grossly intact, Neuro grossly intact Psych/Mental Status: Normal Affect, Appropriate Patient seen exam prior to discharge. Physical assessment as noted above. Patient is stable for discharge home with the follow-up recommendations as noted above. This patient was seen by EVITA Pederson under the supervision of Dr. Clarke. Discharge Diet: Low fat/ Low Cholesterol Discharge Activity: Return to Normal Activity Call your doctor if you observe: Numbness or Tingling, Shortness of breath, Dizziness, Fainting spells, Chest pain Home Medications: Medications to take at Discharge Aspirin [Aspirin, Baby] 81 mg PO DAILY@0800 #30 tab.chew 03/30/18 Atorvastatin Calcium [Lipitor] 80 mg PO QHS #30 tab 03/30/18 Clopidogrel Bisulfate [Plavix] 75 mg PO DAILY #21 tab 03/30/18 Following Prescrptions Were Given to Patient: Aspirin [Aspirin, Baby] 81 mg PO DAILY@0800 #30 tab.chew Atorvastatin Calcium [Lipitor] 80 mg PO QHS #30 tab Clopidogrel Bisulfate [Plavix] 75 mg PO DAILY #21 tab Primary Care Physician: Blu Gill MD [Primary Care Provider] - Please follow up with your Primary Care Physician in: 1 Week Please Follow Up With: Lazara Fernandez MD When: 2-3 Weeks Please Follow Up With: Curt Guillaume MD - Vascular Surgery When: 1-2 Weeks for follow regarding left carotid artery stenosis Disposition: Home Minutes spent on discharge:: 35 Patient Condition:: Stable Medical Necessity - Tobacco Use Smoking Status: Never smoker Tobacco Use: Non-smoker Meaningful Use Info Meaningful Use Diagnoses (Choose all that apply): None applicable
== END 2018-03-30 10:15 | disposition home or self-care (01) ==
LOC: ED 16:16 → PCU 17:07
PROVIDERS: Admitting Provider Internal Medicine; Emergency Provider Emergency Medicine; Family Provider Family Medicine; PCP Family Medicine; Visit Provider Family Medicine
DX: G45.9 Transient cerebral ischemic attack, unspecified (principal); E78.5 Hyperlipidemia, unspecified; E66.9 Obesity, unspecified; Z68.34 Body mass index [BMI] 34.0-34.9, adult; Z71.3 Dietary counseling and surveillance; I10 Essential (primary) hypertension; R73.9 Hyperglycemia, unspecified
CPT/HCPCS: 36415; 70496; 70498; 70551; 72141; 80048; 80061; 82962; 83036; 85025; 85610; 85730; 93005; 93306; 96360; 96361; 97165; 99218; 99285; J7030; Q9957; Q9967; A4216; C8929; G0378

== ENCOUNTER → 2018-04-20 13:51 | Outpatient (CLI) | payer MEDICAID, SELFPAY ==
--- NOTE | 2018-04-20 13:54 | CDU_ITS ---
Reason For Study: TIA Rt. Velocities/BP Lt. Velocities/BP Prox CCA 76.2/21.1 cm/sec. Prox CCA 83.3/27.0 cm/sec. Mid CCA 90.3/26.4 cm/sec. Mid CCA 63.9/21.7 cm/sec. Dist CCA 85.0/22.9 cm/sec. Dist CCA 80.3/27.0 cm/sec. Prox ICA 56.9/22.3 cm/sec. Prox ICA 116/47.1 cm/sec. Mid ICA 63.9/23.5 cm/sec. Mid ICA 93.2/37.5 cm/sec. Dist ICA 68.0/30.5 cm/sec. Dist ICA 68.0/32.2 cm/sec. Rt. ICA/CCA = .8. Lt. ICA/CCA = 1.8. Prox ECA 109/15.2 cm/sec. Prox ECA 104/17.6 cm/sec. Rt. Vert. 55.1/15.2 cm/sec. Lt. Vert. 30.3/11.4 cm/sec. Right Extracranial There is intimal thickening but no significant atherosclerotic plaque noted in the right common carotid artery. There is homogeneous, smooth atherosclerotic plaque noted in the right internal carotid artery. There is intimal thickening but no significant atherosclerotic plaque noted in the right external carotid artery. Antegrade flow is noted in the right vertebral artery. Left Extracranial There is intimal thickening but no significant atherosclerotic plaque noted in the left common carotid artery. There is heterogeneous, irregular atherosclerotic plaque noted in the left internal carotid artery. There is intimal thickening but no significant atherosclerotic plaque noted in the left external carotid artery. Antegrade flow is noted in the left vertebral artery. Procedure Carotid Duplex [id number]. The exam was diagnostic. Exam performed in department. Interpretation Summary Minimal smooth plague at the proximal right internal carotid with <50% stenosis. Calcific plague with shadowing at the proximal left internal carotid with <50% stenosis but close to this range Normal flow bilateral external carotids Patent and antegrade vertebrals bilaterally Ordering Physician: Curt Guillaume Performed By: Robb San RVT
== END ==
PROVIDERS: Family Provider Family Medicine; PCP Family Medicine; Visit Provider Surgery
DX: Z86.73 Personal history of transient ischemic attack (TIA), and cerebral infarction without residual deficits (principal)
CPT/HCPCS: 93880

== ENCOUNTER → 2018-05-11 22:16 | Outpatient (CLI) | payer MEDICAID, SELFPAY | PROVIDERS: Family Provider Family Medicine; PCP Family Medicine; Visit Provider Clinical Nurse Specialist Acute Care | DX: G47.33 Obstructive sleep apnea (adult) (pediatric) (principal) | CPT/HCPCS: 95810 ==

== ENCOUNTER → 2018-05-12 05:49 | Outpatient (CLI) | payer MEDICAID, SELFPAY ==
[2018-05-12 06:51] LABS: AST(SGOT) 32 U/L (15-37); Alanine Aminotransfer ALT/SGPT 66 U/L (16-61); Albumin, Serum 3.8 g/dL (3.2-5.0); Alkaline Phosphatase 73 U/L (45-117); Anion Gap 7 (5-15); BUN 15 mg/dL (7-18); BUN/Creat Ratio 16.8 RATIO (10-20); Bilirubin, Direct 0.36 mg/dL (0.00-0.30); Calcium,Total 8.6 mg/dL (8.5-10.1); Chloride 104 mmol/L (98-107); Cholesterol 115 mg/dL (200); Creatinine, Serum 0.89 mg/dL (0.70-1.30); EST Glomerular Filtration Rate 95 mL/min (>60); Est Glom Filt Rate - Afr Amer 115 mL/min (>60); Globulin 3.9 g/dL (2.2-4.2); Glucose 98 mg/dL (74-106); High Density Lipoprotein 32 mg/dL; Potassium 4.1 mmol/L (3.5-5.1); Protein, Total 7.7 g/dL (6.4-8.2); Sodium Level 141 mmol/L (136-145); Triglycerides 130 mg/dL; Very Low Density Lipoprotein 26 mg/dL (5-40)
== END ==
PROVIDERS: Family Provider Family Medicine; PCP Family Medicine; Visit Provider Family Medicine
DX: E83.51 Hypocalcemia (principal); Z86.73 Personal history of transient ischemic attack (TIA), and cerebral infarction without residual deficits; Z79.899 Other long term (current) drug therapy
CPT/HCPCS: 36415; 80048; 80061; 80076

== ENCOUNTER → 2020-08-13 12:53 | Outpatient (CLI) | payer MEDICAID, SELFPAY ==
[2019-06-16 08:32] VITALS: BMI 32.4
--- NOTE | 2020-08-13 12:55 | CDU_ITS ---
Reason For Study: Carotid stenosis Rt. Velocities/BP Lt. Velocities/BP Prox CCA 106/23.9 cm/sec. Prox CCA 90/24.9 cm/sec. Mid CCA 99.5/23.9 cm/sec. Mid CCA 90/26.2 cm/sec. Dist CCA 83.9/23.9 cm/sec. Dist CCA 83.9/23.7 cm/sec. Prox ICA 71.6/16.3 cm/sec. Prox ICA 92.5/22.5 cm/sec. Mid ICA 71.6/26.2 cm/sec. Mid ICA 52/20.1 cm/sec. Dist ICA 77.7/29.8 cm/sec. Dist ICA 57.5/22.3 cm/sec. Rt. ICA/CCA = 0.8. Lt. ICA/CCA = 1.0. Prox ECA 141.2/22.5 cm/sec. Prox ECA 109.6/18.8 cm/sec. Rt. Vert. 64.2/13.9 cm/sec. Lt. Vert. 44.3/11.3 cm/sec. Right Extracranial There is intimal thickening but no significant atherosclerotic plaque noted in the right common carotid artery. There is homogeneous, smooth atherosclerotic plaque noted in the right internal carotid artery. There is intimal thickening but no significant atherosclerotic plaque noted in the right external carotid artery. Antegrade flow is noted in the right vertebral artery. Left Extracranial There is intimal thickening but no significant atherosclerotic plaque noted in the left common carotid artery. There is heterogeneous, irregular atherosclerotic plaque noted in the left internal carotid artery. There is intimal thickening but no significant atherosclerotic plaque noted in the left external carotid artery. Antegrade flow is noted in the left vertebral artery. Procedure Carotid Duplex 90305. This is a Carotid Duplex examination using B-mode, color flow and specral Doppler. Exam performed in department. Interpretation Summary Mild (<50%) stenosis right extracranial internal carotid. Mild (<50%) stenosis left extracranial internal carotid. Flow within the vertebral arteries is antegrade bilaterally. Ordering Physician: Blu Gill Referring Physician: Blu Gill Performed By: Alina Justice RVT
== END ==
PROVIDERS: PCP Family Medicine; Referring Provider Family Medicine; Visit Provider Family Medicine
DX: I65.23 Occlusion and stenosis of bilateral carotid arteries (principal)
CPT/HCPCS: 93880

== ENCOUNTER → 2024-12-17 | Outpatient (CLI) | payer MEDICAID, SELFPAY ==
[2024-12-17 11:33] LABS: Hemoglobin A1c 6.4 % (<=5.6)
[2024-12-17 11:43] LABS: AST(SGOT) 34 U/L (<=37); Alanine Aminotransfer ALT/SGPT 48 U/L (<=46); Albumin, Serum 4.2 g/dL (3.5-5.0); Alkaline Phosphatase 75 U/L (40-129); Anion Gap 12 (5-15); BUN 18 mg/dL (4-19); BUN/Creat Ratio 22.4 RATIO (10-20); Bilirubin, Direct 0.49 mg/dL (0.00-0.30); Calcium,Total 9.4 mg/dL (7.6-11.0); Carbon Dioxide 22.5 mmol/L (21.0-32.0); Chloride 104 mmol/L (98-108); Cholesterol 254 mg/dL (<=200); Creatinine, Serum 0.79 mg/dL (0.70-1.20); EST Glomerular Filtration Rate 103 (>60); Globulin 3.6 g/dL (2.2-4.2); Glucose 114 mg/dL (70-99); High Density Lipoprotein 35 mg/dL; Low Density Lipoprotein Calc. 136 mg/dL; PSA,Total - Annual Screen 0.54 ng/mL (0.02-4.00); Potassium 4.2 mmol/L (3.3-5.1); Protein, Total 7.8 g/dL (5.9-8.4); Sodium Level 139 mmol/L (133-145); Total Bilirubin 1.79 mg/dL (0.00-1.30); Triglycerides 416 mg/dL; Very Low Density Lipoprotein 83 mg/dL (5-40); cholesterol:hdl ratio screen 7.36
== END | disposition home or self-care (01) ==
LOC: MFPLAB 09:37
PROVIDERS: PCP Family Medicine; Referring Provider Family Medicine; Visit Provider Family Medicine
DX: Z13.220 Encounter for screening for lipoid disorders (principal); R73.01 Impaired fasting glucose; Z13.1 Encounter for screening for diabetes mellitus; R79.89 Other specified abnormal findings of blood chemistry; Z12.5 Encounter for screening for malignant neoplasm of prostate
CPT/HCPCS: 84153; 36415; 80048; 80061; 80076; 83036; G0103